=== PATIENT | male | born 1985 | race Caucasian/White ===

== ENCOUNTER 2017-03-31 10:55 | Emergency (ER) | payer OTHER ==
[2017-03-31 11:12] LABS: ADD MAN DIFF? NO
[2017-03-31 11:14] LABS: BASO # 0.1 x10^3/uL (0.0-0.2); BASO % 1 % (0-3); EOS # 0.1 x10^3/uL (0.0-0.7); EOS % 1 % (0-3); HEMATOCRIT 48.9 % (39.0-53.0); HEMOGLOBIN 16.5 g/dL (13.0-17.5); LYMPH # 2.1 x10^3/uL (1.0-4.8); LYMPH % 22 % (24-48); MEAN CORPUSCULAR HEMOGLOBIN 32 pg (25-35); MEAN CORPUSCULAR HGB CONC 34 g/dL (31-37); MEAN CORPUSCULAR VOLUME 95 fL (79-100); MONO # 0.8 x10^3/uL (0.0-1.1); MONO % 8 % (0-9); NEUT # 6.8 x10^3uL (1.8-7.7); NEUT % 69 % (31-73); PLATELET COUNT 229 x10^3/uL (140-400); RED BLOOD COUNT 5.14 x10^6/uL (4.30-5.70); RED CELL DISTRIBUTION WIDTH 13.5 % (11.5-14.5); WHITE BLOOD COUNT 9.8 x10^3/uL (4.0-11.0)
[2017-03-31] MEDS: IV NORMAL SALINE 1000ML BAG 1,000 ML IV (11:20)
[2017-03-31] MEDS: LORazepam 1 MG TABLET PO (11:44)
[2017-03-31 12:13] LABS: ANION GAP 14 (6-14); BLOOD UREA NITROGEN 10 mg/dL (8-26); CALCIUM 8.6 mg/dL (8.5-10.1); CARBON DIOXIDE 25 mmol/L (21-32); CHLORIDE 98 mmol/L (98-107); CREATININE 1.1 mg/dL (0.7-1.3); GFR 77.6; GLUCOSE 176 mg/dL (70-99); POTASSIUM 3.5 mmol/L (3.5-5.1); SODIUM 137 mmol/L (136-145)
[2017-03-31 12:21] LABS: ALK PHOS 81 U/L (46-116); ALT (SGPT) 79 U/L (16-63); AST (SGOT) 33 U/L (15-37); DIRECT BILIRUBIN 0.3 mg/dL (0.0-0.2); LIPASE 217 U/L (73-393); TOTAL BILIRUBIN 0.9 mg/dL (0.2-1.0); TOTAL PROTEIN 7.1 g/dL (6.4-8.2)
[2017-03-31 12:22] LABS: TROPONINI < 0.017 ng/mL (0.000-0.055)
== END 2017-03-31 14:50 | disposition home or self-care (01) ==
LOC: ER 10:55
DX: R00.2 Palpitations (principal); I10 Essential (primary) hypertension; F41.1 Generalized anxiety disorder
CPT/HCPCS: 36415; 71045; 80048; 80076; 83690; 84484; 85025; 93005; 96360; 96361; 99285-25; J7030

== ENCOUNTER 2018-05-21 16:36 | Emergency (ER) | payer SELFPAY ==
[~2018-05-21] VITALS: Ht 177.8 cm; Wt 87.1 kg
--- NOTE | 2018-05-21 17:54 | PHYS DOC ---
Past Medical History Past Medical History: No Pertinent History, Hypertension (JOYCELYN CORBIN [employer]ER DESIGNER) Past Surgical History: No Surgical History (JOYCELYN CORBIN APRN) Alcohol Use: Occasionally Drug Use: None (JOYCELYN CORBIN APRN) Adult General Chief Complaint Chief Complaint: DIZZY/LIGHT HEADED HPI HPI Patient is a 32 year old male who presents with a cough, nasal congestion or fever last month and was put on Augmentin on April 14 he didn't finish his antibiotics. Wednesday he began getting worse again with cough, dizziness, fatigue but has remained afebrile. Patient states that he "just feels out of it. " (JOYCELYN CORBIN [employer] DESIGNER) Review of Systems Review of Systems Constitutional: Denies fever or chills [] Eyes: Denies change in visual acuity, redness, or eye pain [] HENT: Denies nasal congestion or sore throat [] Respiratory: cough or denies shortness of breath [] Cardiovascular: No additional information not addressed in HPI [] GI: Denies abdominal pain, nausea, vomiting, bloody stools or diarrhea [] : Denies dysuria or hematuria [] Musculoskeletal: Fatigue. Denies back pain or joint pain [] Integument: Denies rash or skin lesions [] Neurologic: confusion/dizziness. Denies headache, focal weakness or sensory changes [] All other systems were reviewed and found to be within normal limits, except as documented in this note. (JOYCELYN CORBIN [employer] DESIGNER) Current Medications Current Medications Current Medications Medications (Trade) Dose Ordered Sig/Christina Start Time Stop Time Status Last Admin Dose Admin Sodium Chloride 1,000 ml @ 1,000 mls/hr 1X ONCE 05/21/18 18:45 05/21/18 19:25 DC 05/21/18 18:38 1,000 MLS/HR (ZOË SILVA MD) Allergies Allergies Allergies Coded Allergies Type Severity Reaction Last Updated Verified No Known Drug Allergies 03/31/17 No (ZOË SILVA MD) Physical Exam Physical Exam Constitutional: Well developed, well nourished, no acute distress, non-toxic appearance. [] HENT: Normocephalic, atraumatic, bilateral external ears normal, oropharynx moist, no oral exudates, nose normal. [] Eyes: PERRLA, EOMI, conjunctiva normal, no discharge. [] Neck: Normal range of motion, no tenderness, supple, no stridor. [] Cardiovascular:Heart rate regular rhythm, no murmur [] Lungs & Thorax: Bilateral breath sounds clear to auscultation [] Abdomen: Bowel sounds normal, soft, no tenderness, no masses, no pulsatile masses. [] Skin: Warm, dry, no erythema, no rash. [] Back: No tenderness, no CVA tenderness. [] Extremities: No tenderness, no cyanosis, no clubbing, ROM intact, no edema. [] Neurologic: Alert and oriented X 3, normal motor function, normal sensory function, no focal deficits noted. [] Psychologic: Affect normal, judgement normal, mood normal. Normal Physical Exam[] (JOYCELYN CORBIN APRN) Current Patient Data Vital Signs Vital Signs Date Time Temp Pulse Resp B/P (MAP) Pulse Ox O2 Delivery O2 Flow Rate FiO2 05/21/18 19:17 88 15 96 05/21/18 16:46 97.8 146/104 (118) Room Air 97.8 (ZOË SILVA MD) Lab Values Laboratory Tests Test 05/21/18 17:01 05/21/18 17:50 05/21/18 18:15 Glucose (Fingerstick) 116 mg/dL (70-99) H Influenza Type A Antigen Positive (NEGATIVE) Influenza Type B Antigen Negative (NEGATIVE) White Blood Count 4.5 x10^3/uL (4.0-11.0) Red Blood Count 5.39 x10^6/uL (4.30-5.70) Hemoglobin 16.8 g/dL (13.0-17.5) Hematocrit 49.6 % (39.0-53.0) Mean Corpuscular Volume 92 fL (79-100) Mean Corpuscular Hemoglobin 31 pg (25-35) Mean Corpuscular Hemoglobin Concent 34 g/dL (31-37) Red Cell Distribution Width 13.8 % (11.5-14.5) Platelet Count 204 x10^3/uL (140-400) Neutrophils (%) (Auto) 63 % (31-73) Lymphocytes (%) (Auto) 28 % (24-48) Monocytes (%) (Auto) 9 % (0-9) Eosinophils (%) (Auto) 0 % (0-3) Basophils (%) (Auto) 1 % (0-3) Neutrophils # (Auto) 2.8 x10^3uL (1.8-7.7) Lymphocytes # (Auto) 1.3 x10^3/uL (1.0-4.8) Monocytes # (Auto) 0.4 x10^3/uL (0.0-1.1) Eosinophils # (Auto) 0.0 x10^3/uL (0.0-0.7) Basophils # (Auto) 0.0 x10^3/uL (0.0-0.2) Urine Collection Type Unknown Urine Color Yellow Urine Clarity Clear Urine pH 6.5 Urine Specific Jay 1.015 Urine Protein Negative mg/dL (NEG-TRACE) Urine Glucose (UA) Negative mg/dL (NEG) Urine Ketones (Stick) Trace mg/dL (NEG) Urine Blood Negative (NEG) Urine Nitrite Negative (NEG) Urine Bilirubin Negative (NEG) Urine Urobilinogen Dipstick 1.0 mg/dL (0.2 mg/dL) Urine Leukocyte Esterase Negative (NEG) Urine RBC 0 /HPF (0-2) Urine WBC Rare /HPF (0-4) Urine Bacteria 0 /HPF (0-FEW) Sodium Level 145 mmol/L (136-145) Potassium Level 3.7 mmol/L (3.5-5.1) Chloride Level 105 mmol/L (98-107) Carbon Dioxide Level 27 mmol/L (21-32) Anion Gap 13 (6-14) Blood Urea Nitrogen 7 mg/dL (8-26) L Creatinine 0.9 mg/dL (0.7-1.3) Estimated GFR (Cockcroft-Gault) 97.2 BUN/Creatinine Ratio 8 (6-20) Glucose Level 109 mg/dL (70-99) H Calcium Level 8.4 mg/dL (8.5-10.1) L Total Bilirubin 0.4 mg/dL (0.2-1.0) Aspartate Amino Transferase (AST) 54 U/L (15-37) H Alanine Aminotransferase (ALT) 88 U/L (16-63) H Alkaline Phosphatase 102 U/L (46-116) Troponin I Quantitative < 0.017 ng/mL (0.000-0.055) Total Protein 7.2 g/dL (6.4-8.2) Albumin 3.8 g/dL (3.4-5.0) Albumin/Globulin Ratio 1.1 (1.0-1.7) Urine Opiates Screen Neg (NEG) Urine Methadone Screen Neg (NEG) Urine Barbiturates Neg (NEG) Urine Phencyclidine Screen Neg (NEG) Urine Amphetamine/Methamphetamine Neg (NEG) Urine Benzodiazepines Screen Neg (NEG) Urine Cocaine Screen Neg (NEG) Urine Cannabinoids Screen Pos (NEG) Urine Ethyl Alcohol Pos (NEG) Laboratory Tests 05/21/18 18:15 Laboratory Tests 05/21/18 18:15 (ZOË SILVA MD) EKG EKG Sinus and no STEMI[] Interpretation Time: [address] Silva (JOYCELYN CORBIN APRN) Radiology/Procedures Radiology/Procedures [] (JOYCELYN CORBIN APRN) Impressions: [facility] [address] [place], [place] [id number] IMAGING REPORT Signed PATIENT: TRENT JONES ACCOUNT: [id number] : 1985 LOCATION: ER AGE: 32 SEX: M EXAM STATUS: REG ER ORD. PHYSICIAN: JOYCELYN CORBIN APRN REASON: dizziness, confusion PROCEDURE: CT HEAD WO CONTRAST PQRS Compliance statement: One or more of the following individualized dose reduction techniques were utilized for this examination: 1. Automated exposure control. 2. Adjustment of the mA and/or kV according to patient size. 3. Use of iterative reconstruction technique. Indication:dizziness, confusion TECHNIQUE: CT head without IV contrast COMPARISON:None FINDINGS: No pathologic extra-axial or intra-axial fluid collection. The ventricles and basal cisterns are within normal limits. No acute intracranial bleed. No focal loss of lund-white differentiation. Orbits are within normal limits. No suspicious calvarial lesion. Visualized paranasal sinuses and mastoid air cells are clear. IMPRESSION: No acute intracranial process. Electronically signed by: Konrad Lira DO (05/21/2018 6:39 PM) [facility] DICTATED and SIGNED BY: KONRAD LIRA DO DATE: 05/21/18 4029 (JOYCELYN CORBIN APRN) Course & Med Decision Making Course & Med Decision Making Patient is a 32 year old male who presents with a cough, nasal congestion or fever last month and was put on Augmentin on April 14 he didn't finish his antibiotics. Wednesday he began getting worse again with cough, dizziness, fatigue but has remained afebrile. Patient states that he "just feels out of it. " Alert and oriented. Speaks in full clear sentences. Ambulatory with a steady gait. Answers all questions appropriately. Equal strengths in all extremities. Patient denies nausea, vomiting, fever, diarrhea, shortness of air, chest pain, any pain on his body. Skin is pink warm and dry. Mucous membranes moist. Patient denies any numbness or tingling or syncope. Afebrile. 97 heart rate, 137 /82, 96% on room air, 16 respirations. No extremity swelling. Moves all extremities equally. Lungs are clear to auscultation all lobes. Heart rate regular. EKG is sinus rhythm and no STEMI. Patient states he does have tightness in his chest at times. He states he has dizziness when he is up and moving around a lot or coughing. Abdomen soft and nontender. Patient is given a bolus of normal saline. Patient is Flu A positive. Patient will be treated with Tamiflu and should follow up with his primary care. Blood work unremarkable. Urine positive for marijuana and alcohol. Chest xray andrew no apparent acute findings when compared to old chest xray. Xray red by Dr Silva. (JOYCELYN CORBIN APRN) Course & Med Decision Making Staff Physician Addendum: I was working in the ER during the course of this patient's visit. I was available for consultation as needed, but I was not directly involved in the care of this patient. (ZOË SILVA MD) Dragon Disclaimer Dragon Disclaimer This electronic medical record was generated, in whole or in part, using a voice recognition dictation system. (JOYCELYN CORBIN APRN) Departure Departure Impression: Primary Impression: Influenza A Disposition: HOME, SELF-CARE Condition: STABLE Referrals: NO PCP (PCP) Patient Instructions: Influenza A (H1N1) Additional Instructions: Follow-up with your primary care provider. Drink plenty of fluids. Eat before taking medication. Take Tylenol or ibuprofen for any kind of pain. Take medications as prescribed. Scripts Benzonatate (TESSALON PERLE) 100 Mg Capsule 1 CAP PO TID, #21 CAP Prov: JOYCELYN CORBIN APRN 05/21/18 Ondansetron (ONDANSETRON ODT) 4 Mg Tab.rapdis 1 TAB PO PRN Q6-8HRS, #16 TAB Prov: JOYCELYN CORBIN APRN 05/21/18 Oseltamivir Phosphate (TAMIFLU) 75 Mg Capsule 1 CAP PO BID for 5 Days, #10 CAP Prov: JOYCELYN CORBIN APRN 05/21/18 JOYCELYN CORBIN APRN May 21, 2018 17:54 ZOË SILVA MD May 23, 2018 02:21
[2018-05-21 18:24] LABS: BASO % 1 % (0-3); EOS % 0 % (0-3); HEMATOCRIT 49.6 % (39.0-53.0); HEMOGLOBIN 16.8 g/dL (13.0-17.5); LYMPH # 1.3 x10^3/uL (1.0-4.8); LYMPH % 28 % (24-48); MEAN CORPUSCULAR HEMOGLOBIN 31 pg (25-35); MEAN CORPUSCULAR HGB CONC 34 g/dL (31-37); MEAN CORPUSCULAR VOLUME 92 fL (79-100); MONO # 0.4 x10^3/uL (0.0-1.1); MONO % 9 % (0-9); NEUT # 2.8 x10^3uL (1.8-7.7); NEUT % 63 % (31-73); PLATELET COUNT 204 x10^3/uL (140-400); RED BLOOD COUNT 5.39 x10^6/uL (4.30-5.70); RED CELL DISTRIBUTION WIDTH 13.8 % (11.5-14.5); WHITE BLOOD COUNT 4.5 x10^3/uL (4.0-11.0)
[2018-05-21 18:25] LABS: BILIRUBIN,URINE NEGATIVE (NEG); CLARITY,URINE CLEAR; COLOR,URINE YELLOW; NITRITE,URINE NEGATIVE (NEG); PH,URINE 6.5; PROTEIN,URINE NEGATIVE (NEG-TRACE)
[2018-05-21 18:27] LABS: INFLUENZA A PATIENT POSITIVE (NEGATIVE)
[2018-05-21 18:28] LABS: INFLUENZA B PATIENT NEGATIVE (NEGATIVE)
[2018-05-21 18:32] LABS: AMPHETAMINE/METHAMPHETAMINE NEG (NEG); BARBITURATES NEG (NEG); BENZODIAZEPINES NEG (NEG); CANNABINOIDS POS (NEG); COCAINE NEG (NEG); METHADONE NEG (NEG); OPIATES NEG (NEG); PHENCYCLIDINE NEG (NEG)
[2018-05-21] MEDS ORDERED: BENZ100C PO (18:37)
[2018-05-21] MEDS ORDERED: OSEL75CA PO (18:37)
[2018-05-21] MEDS ORDERED: ONDA4TAB12 PO (18:37)
[2018-05-21 18:39] LABS: BACTERIA,URINE 0 /HPF (0-FEW); RBC,URINE 0 /HPF (0-2); WBC,URINE RARE /HPF (0-4)
[2018-05-21 18:41] LABS: CALCIUM 8.4 mg/dL (8.5-10.1); CREATININE 0.9 mg/dL (0.7-1.3); GFR 97.2; POTASSIUM 3.7 mmol/L (3.5-5.1)
--- NOTE | 2018-05-21 18:42 | RAD ---
PQRS Compliance statement: One or more of the following individualized dose reduction techniques were utilized for this examination: 1. Automated exposure control. 2. Adjustment of the mA and/or kV according to patient size. 3. Use of iterative reconstruction technique. Indication:dizziness, confusion TECHNIQUE: CT head without IV contrast COMPARISON:None FINDINGS: No pathologic extra-axial or intra-axial fluid collection. The ventricles and basal cisterns are within normal limits. No acute intracranial bleed. No focal loss of lund-white differentiation. Orbits are within normal limits. No suspicious calvarial lesion. Visualized paranasal sinuses and mastoid air cells are clear. IMPRESSION: No acute intracranial process. Electronically signed by: Konrad Lira DO (05/21/2018 6:39 PM) [facility]
[2018-05-21] MEDS ORDERED: IV NORMAL SALINE 1000ML BAG 1,000 ML IV ONE (18:45)
[2018-05-21 18:47] LABS: ALBUMIN 3.8 g/dL (3.4-5.0); ALBUMIN/GLOBULIN RATIO 1.1 (1.0-1.7); TOTAL BILIRUBIN 0.4 mg/dL (0.2-1.0); TOTAL PROTEIN 7.2 g/dL (6.4-8.2)
[2018-05-21 19:17] VITALS: BP 123/81
--- NOTE | 2018-05-21 19:54 | RAD ---
CHEST PA LATERAL CLINICAL INDICATION: Cough and fever COMPARISON: 03/31/2017 FINDINGS: Heart is normal in size. Mild prominence of bilateral central bronchial markings. No focal consolidation. No pneumothorax or pleural effusion. Visualized bony thorax is within normal limits. IMPRESSION: Findings suggests mild bronchitis. Electronically signed by: Konrad Lira DO (05/21/2018 7:51 PM) [facility]
--- NOTE | 2018-05-22 11:06 | EKG ---
[facility] [address] [place] [address] Test Date: 2018-05-21 Test Time: 16:53:25 Pat Name: TRENT JONES Department: Room: Gender: M Staff Scientist: : 1985 Requested By: JOYCELYN CORBIN Order Number: [id number] Reading MD: Paul Shea Measurements Intervals [place] Rate: 104 P: 55 NM: 128 QRS: 18 QRSD: 88 T: 32 QT: 342 QTc: 456 Interpretive Statements SINUS TACHYCARDIA NONSPECIFIC ST-T WAVE CHANGES. Electronically Signed On 05-23-2018 11:00:33 HR PAYROLL COORDINATOR by Paul Shea
== END 2018-05-21 19:23 | disposition home or self-care (01) ==
LOC: ER 16:36
DX: J10.1 Influenza due to other identified influenza virus with other respiratory manifestations (principal); I10 Essential (primary) hypertension
CPT/HCPCS: 36415; 70450; 71046; 80053; 80307; 81001; 82962; 84484; 85025; 87804; 93005; 96360; 99284; J7030